=== PATIENT | female | born 1990 | race Caucasian/White ===

== ENCOUNTER 2024-07-28 15:41 | Emergency (ER) | payer MEDICAID ==
[~2024-07-28] VITALS: Ht 157.5 cm; Wt 56.3 kg
[2024-07-28] MEDS ORDERED: INDERAL 10MG10 MG PO (15:58)
[2024-07-28 16:17] LABS: BASO # 0.03 K/mm3 (0.02-0.10); EOS # 0.01 K/mm3 (0.04-0.40); EOS % 0.1 % (1.0-5.0); HEMATOCRIT 40.5 % (37.0-47.0); HEMOGLOBIN 13.7 g/dL (12.5-16.0); LYMPH# 1.94 K/mm3 (1.50-4.00); MEAN CELL VOLUME 89 fl (78-100); MEAN CORPUSCULAR HEMOGLOBIN 30 pg (27-31); MEAN CORPUSCULAR HGB CONC 34 g/dL (33-37); MEAN PLATELET VOLUME 10.2 fl (7.4-10.4); MONO # 0.44 K/mm3 (0.20-0.80); NEU # 5.84 K/mm3 (1.40-6.50); PLATELET COUNT 255 K/mm3 (130-400); RED BLOOD COUNT 4.56 M/mm3 (4.10-5.30); RED CELL DISTRIBUTION WIDTH 11.9 % (11.5-14.5); WHITE BLOOD COUNT 8.3 K/mm3 (4.8-10.8)
[2024-07-28 16:21] LABS: ALBUMIN 4.6 g/dL (3.5-5.0)
[2024-07-28 16:23] LABS: CALCIUM 9.2 mg/dL (8.3-10.5)
[2024-07-28 16:24] LABS: TOTAL PROTEIN 8.3 g/dL (6.4-8.3)
[2024-07-28 16:26] LABS: TOTAL BILIRUBIN 0.5 mg/dL (0.2-1.2)
[2024-07-28] MEDS ORDERED: Ondansetron 4 MG/2 ML VIAL IV ONE (16:30)
[2024-07-28] MEDS ORDERED: Ketorolac 30 MG/ML VIAL IV ONE (17:00)
[2024-07-28] MEDS ORDERED: diphenhydrAMINE 50 MG/ML 1 ML VIAL IV ONE (17:00)
[2024-07-28] MEDS ORDERED: ZOFRAN ODT4 MG PO (17:31)
[2024-07-28 18:35] VITALS: BP 149/92
== END 2024-07-28 18:23 | disposition home or self-care (01) ==
LOC: EDBD 15:41 → ED 15:41
PROVIDERS: Family Medicine
DX: G43.909 Migraine, unspecified, not intractable, without status migrainosus (principal); E87.6 Hypokalemia
CPT/HCPCS: J1200; J1885; J2405; J7120